=== PATIENT | female | born 1980 | race Caucasian/White ===

== ENCOUNTER 2017-03-12 03:41 | Inpatient (IN) | payer MEDICAID, OTHER ==
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
[2017-03-12 04:29] LABS: BASO # 0.1 K/uL (0.0-0.2); BASO % 0.9 % (0.0-2.0); EOS # 0.3 K/uL (0.0-0.7); EOS % 3.2 % (0.0-4.0); LYMPH # 2.1 K/uL (1.0-4.3); MEAN CELL VOLUME 68.7 fl (81.0-99.0); MEAN CORPUSCULAR HEMOGLOBIN 21.6 pg (27.0-31.0); MEAN CORPUSCULAR HGB CONC 31.4 g/dL (33.0-37.0); MEAN PLATELET VOLUME 9.6 fl (7.2-11.7); MONO # 0.4 K/uL (0.0-0.8); MONO % 4.7 % (0.0-10.0); NEUT # 5.2 K/uL (1.8-7.0); NEUT % 65.2 % (50.0-75.0); NRBC % 0.1 % (0.0-0.0); RED CELL DISTRIBUTION WIDTH 19.7 % (11.5-14.5); WHITE BLOOD COUNT 7.9 K/uL (4.8-10.8)
[2017-03-12 04:34] LABS: RBC URINE 2 /hpf (0-3); URINE BACTERIA RARE (<OCC); URINE BILIRUBIN NEGATIVE (NEGATIVE); URINE BLOOD NEGATIVE (NEGATIVE); URINE COLOR STRAW (YELLOW); URINE GLUCOSE (UA) NEG (Normal); URINE KETONE NEGATIVE (NEGATIVE); URINE LEUKOCYTE ESTERASE NEG Leu/uL (Negative); URINE PROTEIN NEGATIVE (NEGATIVE); URINE UROBILINOGEN 0.2-1.0 mg/dL (0.2-1.0); WBC URINE 1 /hpf (0-5)
[2017-03-12 04:38] LABS: ALB/GLOB RATIO 1.1 (1.0-2.1); ALCOHOL SERUM 236 mg/dl (0-10); ALKALINE PHOSPHATASE 84 U/L (38-126); ALT/SGPT 44 U/L (9-52); AST/SGOT 27 U/L (14-36); BILIRUBIN,TOTAL 0.3 mg/dl (0.2-1.3); BLOOD UREA NITROGEN 7 mg/dl (7-17); CALCIUM 9.2 mg/dL (8.4-10.2); CARBON DIOXIDE 19 mmol/L (22-30); CHLORIDE 111 mmol/L (98-107); GFR AFRICAN-AMERICAN > 60; GLUCOSE,RANDOM 109 mg/dL (65-105); POTASSIUM 4.1 MMOL/L (3.6-5.0); SODIUM 145 mmol/l (132-148); TOTAL PROTEIN 8.3 G/DL (6.3-8.2)
--- NOTE | 2017-03-12 06:32 | ED PDOC ---
- Laboratory Results Result Diagrams: 03/12/17 04:20 03/12/17 04:20 - ECG O2 Sat by Pulse Oximetry: 100 (RA) Medical Decision Making Medical Decision Makin:00 Patient signed over to me by Forest Terry, pending sobriety and crisis evaluation. 7:[address] Tiara Sparks pending sobriety and crisis evaluation. Disposition - Clinical Impression Clinical Impression: Depression, Alcohol intoxication - POA Present On Arrival: None - Disposition Disposition: Transfer of Care Disposition Time: 07:00 Condition: STABLE Patient Signed Over To: Tiara Sparks (pending sobriety and crisis evaluation.)
--- NOTE | 2017-03-12 07:12 | ED PDOC ---
- Laboratory Results Result Diagrams: 03/12/17 04:20 03/12/17 04:20 - ECG ECG: Positive for: Interpreted By Me, Viewed By Me ECG Rhythm: Positive for: Normal QRS, Sinus Rhythm Rate: 84 O2 Sat by Pulse Oximetry: 100 (RA) Pulse Ox Interpretation: Normal Medical Decision Making Medical Decision Making: Receiving sign out: Patient signed out to me by Dr. Perales at 0700 pending clinical sobriety and crisis evaluation. Scribe Attestation: Documented by Nirmala Leon acting as a scribe for Tiara Sparks MD. Provider Attestation: All medical record entries made by the Scribe were at my direction and personally dictated by me. I have reviewed the chart and agree that the record accurately reflects my personal performance of the history, physical exam, medical decision making, and the department course for this patient. I have also personally directed, reviewed, and agree with the discharge instructions and disposition. Disposition - Clinical Impression Clinical Impression: Depression, Alcohol intoxication - POA Present On Arrival: None - Disposition Disposition: Admitted as In-Patient Disposition Time: 12:03 Condition: STABLE Progress Note - Review of Symptoms Events since last encounter: Time: 1007 EKG, Chest x-ray, acetaminophen and salicylate levels ordered. Time: 1123 Chest x-ray IMPRESSION: Minor bibasilar atelectasis Acetaminophen and salicylate levels within normal limits. Patient pending EKG. Time: 1200 Patient medically cleared for admission under Dr. Rahman. Diagnosis: Depression
--- NOTE | 2017-03-12 11:25 | RAD ---
HISTORY: Medical clearance COMPARISON: Comparison made with chest radiographs 08/13/2015 FINDINGS: LUNGS: Minor bibasilar atelectasis PLEURA: No significant pleural effusion identified, no pneumothorax apparent. CARDIOVASCULAR: Normal. OSSEOUS STRUCTURES: No significant abnormalities. VISUALIZED UPPER ABDOMEN: Normal. OTHER FINDINGS: None. IMPRESSION: Minor bibasilar atelectasis
[2017-03-12] MEDS ORDERED: Magnesium Hydroxide Susp 30 ml UD PO PRN (15:15)
[2017-03-12] MEDS ORDERED: Alum-Mag Hydrox-Simethicone Susp (30 mL) PO PRN (15:15)
[2017-03-12] MEDS ORDERED: DiphenhydrAMINE 50 mg/ml Inj IM PRN (15:15)
--- NOTE | 2017-03-12 15:43 | PCM.BM ---
<MonikaKimberlyn toro - Last Filed: 03/12/17 15:41> Treatment Plan Problems - Problems identified on initial assessmt Feelings of Worthlessness Date Initiated: 03/12/17 Time Initiated: 15:43 Assessment reference: NA Status: Active Hopelessness/Helplessness Date Initiated: 03/12/17 Time Initiated: 15:43 Assessment reference: NA Status: Active Treatment assets and liabiliti Patient Assests: cooperative, ADL independent Patient Liabilities: financial problems - Diagnosis (1) Depression Status: Acute - Milieu Protocol Maintain good personal hygiene: daily Encourage regular showers, daily Remind patient to perform daily oral care, daily Assist patient to perform ADL's Conduct patient checks and document Observation sheet: Q15 minutes Maintain personal safety: every shift Educate patient to report safety concerns to staff, every shift Monitor environment for contraband/sharps Medication safety: Monitor for expected outcome, potential side effects: every shift, Assess barriers to learning: every shift, Assess readiness for medication education: every shift Family Contact Family contact: Family has been contacted by patient - Goals for Treatment Patient goals for treatment: To stop being depressed. To "clear my head" Discharge/Continuing Care - Education Needs Education Needs: Patient Medication - Discharge Discharge Criteria: Free of Suicidal thoughts <Becky Heath - Last Filed: 03/15/17 10:58> Treatment assets and liabiliti Patient Assests: adapts well, cooperative, ADL independent, physically healthy, good support system, negotiates basic needs, good past tx response Patient Liabilities: financial problems, relationship conflicts, substance abuse Family Contact Family involvement: Family/SO is involved Family contact: Telephone contact initiated by staff Family contact name: Mckenna (sister) Family contacted how many times per week?: 1 Family contact comment: ([phone])- Preschool Substitute Teacher will contact family to discuss precursors to hospitalizations, collect further collateral information and address family concerns. Preschool Substitute Teacher to provide family psychoeducation regarding benefits of compliance with appropriate level of aftercare to reduce risk of future hospitalizations. - Outside Agency [facility] involvment: Other - Goals for Treatment Patient goals for treatment: Patient currently being taken off ativan. Patient requesting referrals to outpatient mental health and outpatient substance abuse services. Patient currently not agreeable to inpatient rehab but expresses motivation for tx and maintained sobriety to effectively manage symptoms of depression and anxiety. Discharge/Continuing Care - Education Needs Education Needs: Family Medication, Family Diagnosis/Disease Process, Family Coping Skills, Family Community resources, Patient Medication, Patient Diagnosis /Disease Process, Patient Coping Skills, Patient Community resources - Discharge Discharge Criteria: Tolerates medication w/o severe side effects, Free of Suicidal thoughts, Free of agitation, Normal sleep pattern, Ability to care for self, No longer exhibiting s/s of withdrawal, Reduction of target symptoms Discharge to:: Home - Treatment Team Participation Patient/Family/SO Statement: 03/15/17 10:54 Patient attended tx team and was able to tolerate discussions regarding tx goals. Discussed with Family/SO: Yes Was Patient/Family/SO present at Treatment Team Meeting: No
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
[2017-03-12] MEDS: Albuterol HFA 90 mcg/actuation (8 g) IH PRN (21:11)
--- NOTE | 2017-03-13 07:16 | CARD ---
APPROVED REPORT EKG Measurement Heart [id number] <Conclusion> Normal sinus rhythm Normal ECG
[2017-03-13 08:31] LABS: T4 7.68 ug/dl (5.5-11.0)
[2017-03-13 08:44] LABS: THYROID STIMULATING HORMONE 0.76 mIU/ML (0.46-4.68)
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
[2017-03-13] MEDS: Albuterol HFA 90 mcg/actuation (8 g) IH PRN (17:49)
--- NOTE | 2017-03-14 11:37 | PCM.PYCHPN ---
Psychiatric Progress Note - Psychiatric Progress Note Patient seen today, length of contact: discussed with team Patient Chief Complaint: i feel okay Problems Identified/Issues Discussed: pt reports she feels tremulous, nauseated. she feels anxious/depressed. she had good visit with her mother yesterday. Medication Change: Yes Medical Record Reviewed: Yes Mental Status Examination - Cognitive Function Orientation: Person, Place, Situation, Time Memory: Intact Attention: WNL Concentration: WNL Association: WNL Fund of Knowledge: [facility] Decription of patient's judgement and insights: fair - Mood Mood: Depressed, Anxious - Affect Affect: Constricted - Speech Speech: Appropriate - Formal Thought Process Formal Thought Process: No Impairment - Suicidal Ideation Suicidal Ideation: No - Homicidal Ideation Homicidal Ideation: No Goal/Treatment Plan - Goal/Treatment Plan Need for Continued Stay: Remain at risks for inpatient hospitalization, Severe functional impairment Progress Toward Problem(s) and Goals/Treatment Plan: alcohol dependence increase ativan to 1mg tid disposition planning- t/c rehab referral Estimated Date of D/C: 03/17/17
[2017-03-14] MEDS: Albuterol HFA 90 mcg/actuation (8 g) IH PRN (20:52)
[2017-03-15] MEDS: Albuterol HFA 90 mcg/actuation (8 g) IH PRN ×2 (10:14→20:54)
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
[2017-03-15 13:39] LABS: IRON 26 ug/dL (37-170)
--- NOTE | 2017-03-16 11:58 | PCM.PYCHPN ---
Psychiatric Progress Note - Psychiatric Progress Note Patient seen today, length of contact: discussed with team Patient Chief Complaint: i slept Problems Identified/Issues Discussed: pt reports she slept well last night. some mood lability observed. tearful at times. family reports they are watching her children and encourage pt to stay over the weekend. no withdrawal complications. Diagnostic Results: low hgg, low mcv- iron studies show c/w iron deficiency anemia Medication Change: Yes ( start iron) Medical Record Reviewed: Yes Mental Status Examination - Cognitive Function Orientation: Person, Place, Situation, Time Memory: Intact Attention: WNL Concentration: WNL Association: [facility] Fund of Knowledge: [facility] Decription of patient's judgement and insights: fair - Mood Mood: Depressed, Anxious - Affect Affect: Constricted - Speech Speech: Appropriate - Formal Thought Process Formal Thought Process: No Impairment - Suicidal Ideation Suicidal Ideation: No - Homicidal Ideation Homicidal Ideation: No Goal/Treatment Plan - Goal/Treatment Plan Need for Continued Stay: Remain at risks for inpatient hospitalization, Severe functional impairment Progress Toward Problem(s) and Goals/Treatment Plan: alcohol dependence continue ativan to 1mg bid start iron supplementation continue neurontin at hs for sleep/anxiety disposition planning- refer to outpt. Estimated Date of D/C: 03/17/17
[2017-03-16] MEDS: Albuterol HFA 90 mcg/actuation (8 g) IH PRN (21:11)
[2017-03-17 08:48] VITALS: RESP 18
[2017-03-17] MEDS: Albuterol HFA 90 mcg/actuation (8 g) IH PRN (08:52)
--- NOTE | 2017-03-17 11:04 | PCM.PYCHPN ---
Psychiatric Progress Note - Psychiatric Progress Note Patient seen today, length of contact: discussed with team Patient Chief Complaint: can i go monday Problems Identified/Issues Discussed: pt without c/o withdrawal symptoms. mood is improving. anxiety improving. she has good sleep. she is tolerating reduction of ativan. pt's meds have been eprescribed to [facility] pharmacy in [place]. Diagnostic Results: low hgg, low mcv- iron studies show c/w iron deficiency anemia Medication Change: No ( ) Medical Record Reviewed: Yes Mental Status Examination - Cognitive Function Orientation: Person, Place, Situation, Time Memory: Intact Attention: WNL Concentration: WNL Association: [facility] Fund of Knowledge: [facility] Decription of patient's judgement and insights: fair - Mood Mood: Depressed, Anxious - Affect Affect: Constricted - Speech Speech: Appropriate - Formal Thought Process Formal Thought Process: No Impairment - Suicidal Ideation Suicidal Ideation: No - Homicidal Ideation Homicidal Ideation: No Goal/Treatment Plan - Goal/Treatment Plan Need for Continued Stay: Remain at risks for inpatient hospitalization, Severe functional impairment Progress Toward Problem(s) and Goals/Treatment Plan: alcohol dependence lower ativan to 0.5mg bid and dc after pm dose monday start iron supplementation continue neurontin at hs for sleep/anxiety disposition planning- refer to [facility] and will be discharged monday. Estimated Date of D/C: 03/17/17
[2017-03-17 16:37] VITALS: O2SAT 100
[2017-03-18] MEDS: Albuterol HFA 90 mcg/actuation (8 g) IH PRN (03:22)
[2017-03-18 09:30] VITALS: BP 123/76; PULSE 85; TEMP 98.1
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
== END 2017-03-18 18:29 | disposition home or self-care (01) | DRG 745 ==
LOC: H.ER 03:41 → H.EROBSV 04:30 → H.ERHOLD 12:00 → OBSVTOIN 12:00 → H.PSYCH 14:15
PROVIDERS: ADMIT Psychiatry & Neurology Psychiatry; ATTEND Psychiatry & Neurology Psychiatry
PROC: HZ2ZZZZ Detoxification Services for Substance Abuse Treatment (ICD-10-PCS; principal; 2017-03-12)
PROC: GZHZZZZ Group Psychotherapy (ICD-10-PCS; 2017-03-12)
PROC: GZ58ZZZ Individual Psychotherapy, Cognitive-Behavioral (ICD-10-PCS; 2017-03-12)
DX: F10.229 Alcohol dependence with intoxication, unspecified (principal); F11.20 Opioid dependence, uncomplicated; F31.9 Bipolar disorder, unspecified; D50.9 Iron deficiency anemia, unspecified; F41.9 Anxiety disorder, unspecified; F17.210 Nicotine dependence, cigarettes, uncomplicated; G25.81 Restless legs syndrome; Y90.7 Blood alcohol level of 200-239 mg/100 ml; J45.909 Unspecified asthma, uncomplicated; M06.9 Rheumatoid arthritis, unspecified; Z88.0 Allergy status to penicillin; Z59.9 Problem related to housing and economic circumstances, unspecified; Z65.3 Problems related to other legal circumstances; Z91.410 Personal history of adult physical and sexual abuse

== ENCOUNTER 2017-08-15 08:13 | Emergency (ER) | payer OTHER ==
[2017-08-15 08:29] VITALS: BMI 32.4
[2017-08-15 08:31] VITALS: BP 115/59; PULSE 75; RESP 17; TEMP 98.6; O2SAT 98
--- NOTE | 2017-08-15 09:27 | ED PDOC ---
HPI: CCC, URI, Sore Throat Time Seen by Provider: 08/15/17 08:52 Chief Complaint (Nursing): Flu-like Symptoms Chief Complaint (Provider): URI symptoms History Per: Patient History/Exam Limitations: no limitations Have you had recent travel within the past 21 days to any of the following countries: [place], [place], [place] or [place]?: No Onset/Duration Of Symptoms: Days Current Symptoms Are (Timing): Still Present Location Of Pain: Throat, Diffuse Myalgias Associated Symptoms: Fever Additional Complaint(s): 37yo female, with history of asthma, presents to ED with complaints of fever, sore throat, bodyaches and cough for the past 2 days. Patient denies any chest pain, or shortness of breath. No other medical complaints. Past Medical History Reviewed: Historical Data, Nursing Documentation, Vital Signs Vital Signs: Last Vital Signs Temp 98.6 F 08/15/17 08:29 Pulse 75 08/15/17 08:29 Resp 17 08/15/17 08:29 BP 115/59 L 08/15/17 08:29 Pulse Ox 98 08/15/17 09:27 - Medical History PMH: Anxiety, Asthma, Back Problems, Bipolar Disorder, Depression, Migraine, Rheumatoid Arthritis Denies: Diabetes, Hepatitis, HIV, HTN, Personality Disorder, Chronic Kidney Disease, Schizophrenia, Seizures, Sexually Transmitted Disease - Surgical History Surgical History: (x 2) - Family History Family History: States: Unknown Family Hx - Immunization History Hx Tetanus Toxoid Vaccination: No Hx Influenza Vaccination: Yes Hx Pneumococcal Vaccination: Yes - Home Medications Home Medications: Ambulatory Orders Medication Instructions Recorded traMADol/Acetaminophen [Ultracet 1 tab PO Q6 PRN 03/12/17 37.5/325 mg] ARIPiprazole [Abilify] 10 mg PO DAILY #30 tab 03/17/17 Albuterol HFA [Ventolin HFA 90 2 puff IH Q6 PRN inhaler 03/17/17 mcg/actuation (8 g)] Ferrous Sulfate [Feosol] 325 mg PO DAILY #30 tab 03/17/17 Folic Acid 1 mg PO DAILY #30 tab 03/17/17 Gabapentin [Neurontin] 400 mg PO HS #30 cap 03/17/17 Gabapentin [Neurontin] 600 mg PO TID #90 tab 03/17/17 Nicotine 21 mg/24 hr [Nicoderm Cq] 1 patch TD DAILY #30 patch 03/17/17 Thiamine [Vitamin B1 Tab] 100 mg PO DAILY #30 tab 03/17/17 traZODone [Desyrel] 100 mg PO HS PRN #30 tab 03/17/17 traZODone [Desyrel] 150 mg PO HS PRN #90 tab 03/17/17 Oseltamivir [Tamiflu] 75 mg PO BID #10 cap 08/15/17 - Allergies Allergies/Adverse Reactions: Allergies Allergy/AdvReac Type Severity Reaction Status Date / Time ketorolac tromethamine Allergy Severe ANAPHYLAXIS Verified 03/12/17 03:50 [From Toradol] Penicillins Allergy Severe ANAPHYLAXIS Verified 03/12/17 03:50 pineapple Allergy WHEEZING Verified 03/17/17 22:22 Review of Systems ROS Statement: Except As Marked, All Systems Reviewed And Found Negative Constitutional: Positive for: Fever, Malaise ENT: Positive for: Throat Pain Cardiovascular: Negative for: Chest Pain Respiratory: Positive for: Cough. Negative for: Shortness of Breath Physical Exam - Reviewed Nursing Documentation Reviewed: Yes Vital Signs Reviewed: Yes - Physical Exam Appears: Positive for: Non-toxic, No Acute Distress Head Exam: Positive for: ATRAUMATIC, NORMAL INSPECTION, NORMOCEPHALIC Skin: Positive for: Normal Color Eye Exam: Positive for: Normal appearance ENT: Positive for: Normal ENT Inspection. Negative for: Pharyngeal Erythema, Tonsillar Exudate, Tonsillar Swelling Neck: Positive for: Normal, Painless ROM, Supple Cardiovascular/Chest: Positive for: Regular Rate, Rhythm Respiratory: Positive for: Normal Breath Sounds. Negative for: Respiratory Distress Extremity: Positive for: Normal ROM. Negative for: Deformity, Swelling Neurologic/Psych: Positive for: Alert, Oriented. Negative for: Motor/Sensory Deficits - ECG O2 Sat by Pulse Oximetry: 98 (RA) Pulse Ox Interpretation: Normal Medical Decision Making Medical Decision Making: Impression: URI symptoms Plan: -- Rapid flu Scribe Attestation: Documented by Nirmala Leon, acting as a scribe for Austen Brennan MD. Provider Scribe Attestation: All medical record entries made by the Scribe were at my direction and personally dictated by me. I have reviewed the chart and agree that the record accurately reflects my personal performance of the history, physical exam, medical decision making, and the department course for this patient. I have also personally directed, reviewed, and agree with the discharge instructions and disposition. Disposition - Clinical Impression Clinical Impression: Influenza-like symptoms, Influenza - Patient ED Disposition Is Patient to be Admitted: No Counseled Patient/Family Regarding: Studies Performed, Diagnosis, Need For Followup, Rx Given - Disposition Referrals: [facility] [Outside] Disposition: Routine/Home Disposition Time: 09:52 Condition: FAIR Prescriptions: Oseltamivir [Tamiflu] 75 mg PO BID #10 cap Instructions: Influenza (ED) Forms: [facility] (Tajik)
== END 2017-08-15 10:16 | disposition home or self-care (01) ==
LOC: H.ER 08:13
DX: J45.909 Unspecified asthma, uncomplicated (principal); F31.9 Bipolar disorder, unspecified; F41.9 Anxiety disorder, unspecified; M06.9 Rheumatoid arthritis, unspecified; Z88.0 Allergy status to penicillin

== ENCOUNTER 2018-10-26 05:42 | Observation (INO) | payer MEDICAID ==
[2018-10-26 05:42] VITALS: BMI 32.4
[2018-10-26] MEDS ORDERED: Lidocaine 1% w Epi 1:100,000 Inj ONE (06:07)
[2018-10-26] MEDS ORDERED: Tdap Vaccine 0.5 ml Vial (10-64 yrs) IM ONE ×2 (06:35→06:47)
[2018-10-26] MEDS ORDERED: Lidocaine/Epi 1% 1:100000 20 ML IJ ONE (06:36)
--- NOTE | 2018-10-26 06:40 | ED PDOC ---
HPI: Head Injury Time Seen by Provider: 10/26/18 05:44 Chief Complaint (Nursing): Trauma Chief Complaint (Provider): Trauma History Per: Patient History/Exam Limitations: no limitations Injury Occurred (Timing): Just Before Arrival Patient States: Fell Striking Head Loss Of Consciousness: Minute(s) (approximately 1) Additional Complaint(s): 38 year old female with a history of bipolar disorder presents to the ED via EMS after a fall, causing a head injury just prior to arrival. Patient reports that she fell from the toilet when she was seated and voiding at the time. She approximates losing consciousness for one minute. Patient suffered a laceration to her left forehead and is experiencing swelling over her left eye, as well as a mild headache. Denies chest pain, shortness of breath, nausea and vomiting. PMD: none provided Past Medical History Reviewed: Historical Data, Nursing Documentation, Vital Signs Vital Signs: Last Vital Signs Temp 98.7 F 10/26/18 05:53 Pulse 101 H 10/26/18 05:53 Resp 16 10/26/18 05:53 BP 129/71 10/26/18 05:53 Pulse Ox 100 10/26/18 05:53 - Medical History PMH: Anxiety, Asthma, Back Problems, Bipolar Disorder, Depression, Migraine, Rheumatoid Arthritis Denies: Diabetes, Hepatitis, HIV, HTN, Personality Disorder, Chronic Kidney Disease, Schizophrenia, Seizures, Sexually Transmitted Disease - Surgical History Surgical History: (x 2) - Family History Family History: States: Unknown Family Hx - Social History Current smoker - smoking cessation education provided: No Alcohol: None Drugs: Denies - Immunization History Hx Tetanus Toxoid Vaccination: No Hx Influenza Vaccination: Yes Hx Pneumococcal Vaccination: Yes - Home Medications Home Medications: Ambulatory Orders Medication Instructions Recorded Acetaminophen/Butalbital/Caf 1 tab PO Q6 PRN 10/26/18 [Fioricet] Aripiprazole Extended Release 400 mg IM Q28D 10/26/18 [Abilify Maintena] Gabapentin [Neurontin] 400 mg PO TID 10/26/18 Gabapentin [Neurontin] 600 mg PO HS 10/26/18 Zolpidem [Ambien] 10 mg PO HS 10/26/18 traMADol [Ultram] 50 mg PO Q6 PRN 10/26/18 - Allergies Allergies/Adverse Reactions: Allergies Allergy/AdvReac Type Severity Reaction Status Date / Time ketorolac tromethamine Allergy Severe ANAPHYLAXIS Verified 10/26/18 05:53 [From Toradol] Penicillins Allergy Severe ANAPHYLAXIS Verified 10/26/18 05:53 pineapple Allergy WHEEZING Verified 10/26/18 05:53 Review of Systems ROS Statement: Except As Marked, All Systems Reviewed And Found Negative Eyes: Positive for: Other (laceration to left forehead; swelling over left eye) Cardiovascular: Negative for: Chest Pain Respiratory: Negative for: Cough, Shortness of Breath Gastrointestinal: Negative for: Nausea, Vomiting Physical Exam - Reviewed Nursing Documentation Reviewed: Yes Vital Signs Reviewed: Yes - Physical Exam Appears: Positive for: Non-toxic, No Acute Distress Head Exam: Positive for: ATRAUMATIC, NORMAL INSPECTION, NORMOCEPHALIC Skin: Positive for: Normal Color, Warm, Dry Eye Exam: Positive for: Normal appearance, EOMI, PERRL, Periorbital swelling (left; ecchymosis and edema), Other (3 cm, gaping semi-circular laceration above left eyebrow) Neck: Positive for: Normal, Painless ROM, Supple Cardiovascular/Chest: Positive for: Regular Rate, Rhythm. Negative for: Murmur Respiratory: Positive for: Normal Breath Sounds. Negative for: Respiratory Di stress Gastrointestinal/Abdominal: Positive for: Normal Exam, Soft. Negative for: Tenderness Back: Positive for: Normal Inspection. Negative for: L CVA Tenderness, R CVA Tenderness Extremity: Positive for: Normal ROM (x 4). Negative for: Deformity Neurological/Psych: Positive for: Awake, Alert, Normal Tone, Symmetric/Intact Strength, Oriented (x 3), Gait (steady), coping machine operator II-XII (intact). Negative for: Cerebellar Tests, Motor/Sensory Deficits, Facial Droop - Laboratory Results Result Diagrams: 10/26/18 06:50 10/26/18 06:50 - ECG O2 Sat by Pulse Oximetry: 100 (RA) Pulse Ox Interpretation: Normal Medical Decision Making Medical Decision Makin:32 Impression: forehead laceration, head injury and headache Initial Plan: --CT head --CT maxillofacial --CMP --CBC --Urine preg --Urine dip --Tetanus .5 ml IJ --Lidocaine 1% 4 ml IJ --Tylenol 975 mg PO --Accucheck 07:00 Patient signed out to Dr. Andrews pending full ER workup, re-evaluation and final disposition. -- Scribe Attestation: Documented by Dana Berger, acting as a scribe Thea Langley MD Provider Scribe Attestation: All medical record entries made by the Scribe were at my direction and personally dictated by me. I have reviewed the chart and agree that the record accurately reflects my personal performance of the history, physical exam, medical decision making, and the department course for this patient. I have also personally directed, reviewed, and agree with the discharge instructions and disposition Procedures - Time-Out Type of Procedure: Laceration Repair Site of Procedure: Above left eyebrow Correct Patient (with visual ID + MR# on ID Band): Yes Correct Procedure: Yes Correct Site Marked: Yes Physician Name: Dr. Langley - Laceration/Wound Repair Left Upper Face Wound Length (cm): 3 Wound Explored: clean Anesthesia: 1% Lidocaine Wound Repaired With: Sutures Suture Size/Type: 5:0, proline Number of Sutures: 9 Wound Complexity: Simple Sterile Dressing Applied?: Yes Progress: 3 cm semi-circular laceration above left eyebrow repaired with 9 5:0 proline stitches. Bacitracin and sterile dressing applied. Patient tolerated procedure well. Disposition - Clinical Impression Clinical Impression: Syncope, Head injury, Laceration of forehead - Patient ED Disposition Is Patient to be Admitted: Transfer of Care - Disposition Disposition: Transfer of Care Disposition Time: 07:00 Condition: FAIR Patient Signed Over To: Mina Andrews
[2018-10-26 07:07] LABS: BASO % 0.4 % (0.0-2.0); EOS # 0.1 K/uL (0.0-0.7); EOS % 0.8 % (0.0-4.0); HEMOGLOBIN 8.8 g/dL (12.0-16.0); LYMPH % 9.6 % (20.0-40.0); MEAN CELL VOLUME 61.2 fl (81.0-99.0); MEAN CORPUSCULAR HEMOGLOBIN 18.1 pg (27.0-31.0); MEAN CORPUSCULAR HGB CONC 29.6 g/dL (33.0-37.0); MEAN PLATELET VOLUME 9.2 fl (7.2-11.7); MONO # 0.4 K/uL (0.0-0.8); NEUT # 9.1 K/uL (1.8-7.0); NEUT % 85.2 % (50.0-75.0); PLATELET COUNT 190 K/uL (130-400); RBC 4.85 Mil/uL (3.80-5.20); RED CELL DISTRIBUTION WIDTH 19.2 % (11.5-14.5); WHITE BLOOD COUNT 10.7 K/uL (4.8-10.8)
[2018-10-26 07:17] LABS: ALB/GLOB RATIO 1.2 (1.0-2.1); ALBUMIN 4.1 g/dL (3.5-5.0); ALT/SGPT 16 U/L (9-52); AST/SGOT 24 U/L (14-36); BLOOD UREA NITROGEN 9 mg/dl (7-17); CALCIUM 9.2 mg/dL (8.4-10.2); GFR NON-AFRICAN AMERICAN > 60
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
[2018-10-26 07:56] LABS: ANISOCYTOSIS SLIGHT; EOSINOPHIL 1 % (0-7); HYPOCHROMIC MODERATE; LYMPHOCYTE 12 % (20-50); MICROCYTOSIS MODERATE; MONOCYTE 4 % (0-10); NEUTROPHIL 83 % (42-75); OVALOCYTES SLIGHT; PLATELET ESTIMATE NORMAL (NORMAL); POIKILOCYTOSIS SLIGHT; TEARDROP CELLS SLIGHT; TOTAL CELLS COUNTED 100
--- NOTE | 2018-10-26 08:18 | CT ---
Date of service: 10/26/2018 PROCEDURE: CT HEAD WITHOUT CONTRAST. HISTORY: head injury COMPARISON: None available. TECHNIQUE: Axial computed tomography images were obtained through the head/brain without intravenous contrast. Radiation dose: Total exam DLP = 1570.26 mGy-cm. This CT exam was performed using one or more of the following dose reduction techniques: Automated exposure control, adjustment of the mA and/or kV according to patient size, and/or use of iterative reconstruction technique. FINDINGS: HEMORRHAGE: No intracranial hemorrhage. BRAIN: Normal [place]-white matter differentiation and density are appreciated throughout the cerebrum and cerebellum with the brainstem appearing unremarkable as well. There is no mass effect. There is no suspicious extra-axial fluid collection and the midline brain anatomy appears diffusely unremarkable. VENTRICLES: Unremarkable. No hydrocephalus. CALVARIUM: No destructive bony lesion or displaced fracture identified including through the skullbase. Small exostosis is seen related to the right frontal bone at the vertex. PARANASAL SINUSES: Unremarkable as visualized. No significant inflammatory changes. MASTOID AIR CELLS: Unremarkable as visualized. No inflammatory changes. OTHER FINDINGS: Incidental left orbital cellulitis, posttraumatic. Please see separate left facial CT without contrast for added details. IMPRESSION: No acute intracranial findings. Small exostosis related to right frontal vertex. Posttraumatic left orbital findings. Please see separate facial CT results also performed 10/26/2018.
--- NOTE | 2018-10-26 08:26 | CT ---
Date of service: 10/26/2018 PROCEDURE: CT MAXILLOFACIAL BONES WITHOUT CONTRAST HISTORY: facial trauma COMPARISON: None available. TECHNIQUE: Contiguous axial CT images of the maxillofacial bones were obtained. Coronal and sagittal reformats were generated. Radiation dose: Total exam DLP = 0.0 mGy-cm. This CT exam was performed using one or more of the following dose reduction techniques: Automated exposure control, adjustment of the mA and/or kV according to patient size, and/or use of iterative reconstruction technique. FINDINGS: NASAL BONES: Unremarkable. ORBITS: A prominent left preseptal edema with periorbital hematoma appearing minimal. Emphysematous changes are identified within edema extending into the left frontal scalp minimally. Reactive changes are identified within the extraconal and intraconal fat in the preseptal space mildly without obvious fluid collection. Further clinical correlation is recommended. Right orbit appears unremarkable. PARANASAL SINUSES/ MASTOIDS: Acute right maxillary sinusitis multifocal left ethmoid sinus disease also present. Trace mucoid material or polyp/cyst left frontal sinus nondependent portion. Leftward bony nasal septal deviation. No fracture identified or destructive bony lesion. MAXILLA: Unremarkable. MANDIBLE/ TEMPOROMANDIBULAR JOINTS: Unremarkable. SKULL BASE: Unremarkable. TEMPORAL BONES: Middle ears and mastoid grossly unremarkable. OTHER FINDINGS: None. IMPRESSION: 1. Presumed posttraumatic preseptal and postseptal left orbital cellulitis with the vast majority of reactive changes present in the periorbital and preseptal fat. Trace emphysematous changes seen related to the superior left periorbital and left frontal subcutaneous fat. Mild intraconal and extraconal fatty reaction is also appreciated without fluid collection and ophthalmological consultation may be required. Infectious or inflammatory etiologies not excluded completely. Clinically correlate. 2. Acute right maxillary sinusitis with nonspecific left ethmoid sinusitis. 3. No acute fracture identified throughout the facial bones.
[2018-10-26 10:47] LABS: BARBITURATES, UR NEGATIVE (NEGATIVE)
[2018-10-26 10:48] LABS: BENZODIAZEPINES, UR NEGATIVE (NEGATIVE); OPIATES, UR NEGATIVE (NEGATIVE); PHENCYCLIDINE, UR NEGATIVE (NEGATIVE)
--- NOTE | 2018-10-26 12:05 | MRI ---
Date of service: 10/26/2018 PROCEDURE: MRI BRAIN WITHOUT CONTRAST HISTORY: Syncope, head injury. With the patient's some all adjacent may COMPARISON: Comparison made with CT scan brain 10/26/2018 TECHNIQUE: Multiplanar, multisequence MR images of the brain were obtained without intravenous contrast enhancement. FINDINGS: HEMORRHAGE: No acute parenchymal, subarachnoid or extra-axial hemorrhage. No evidence hemosiderin deposition identified on gradient echo weighted sequence. DWI: No evidence of an acute or early subacute infarction seen on diffusion imaging.. BRAIN PARENCHYMA: No mass effect or edema. No atrophy or chronic microvascular ischemic changes. VENTRICLES: No obstructive hydrocephalus. CRANIUM: Unremarkable. ORBITS: Left periorbital soft tissue swelling. Question small amount of fluid just beneath the left eyelid. Additionally, there also appears to be infiltration changes in the retrobulbar fat both intraconal and extraconal.. While these changes could be reactive secondary to trauma, the possibility of a inflammatory or infectious intraorbital cellulitis cannot be excluded. Ophthalmologic consultation is suggested. PARANASAL SINUSES/MASTOIDS: Moderate mucosal thickening with possible small fluid level right maxillary antrum. There is also mild mucosal thickening in several left-sided ethmoid air cells extending superiorly into the frontal sinus. VASCULAR SYSTEM: Visualized major vascular flow voids at skull base are patent. OTHER FINDINGS: Redemonstrated is soft tissue swelling seen in the left pre maxillary periorbital supraorbital and left frontotemporal region. IMPRESSION: No acute intracranial hemorrhage. Left-sided facial soft tissue including periorbital soft tissue swelling as above. Question small amount of fluid just beneath the left eyelid. Additionally, there also appears to be infiltration changes in the retrobulbar fat both intraconal and extraconal.. While these changes could be reactive secondary to trauma, the possibility of a orbital inflammatory or infectious cellulitis cannot be excluded. Ophthalmologic consultation is suggested. Mucoperiosteal inflammatory changes within the right maxillary multiple left-sided ethmoid air cells as well as frontal sinus. The
[2018-10-26] MEDS ORDERED: levETIRAcetam 1,000 MG in Sodium Chloride 0.9% 200 ML IVPB ONE (12:27)
[2018-10-26] MEDS ORDERED: Valproate 1,000 MG in Sodium Chloride 0.9% 100 ML IVPB ONE (12:31)
[2018-10-26] MEDS ORDERED: levETIRAcetam 1,000 MG in Sodium Chloride 0.9% 100 ML IVPB ONE (12:45)
--- NOTE | 2018-10-26 15:03 | CP.PCM.CON ---
History of Present Illness - History of Present Illness History of Present Illness: Neurology consult dictated. Patient with new onset epilepsy. Continue on depakote 500 mg bid. [facility] outpatient. [facility] #[id number] Dr. Gonzalez Neurology Past Patient History - Tetanus Immunizations Tetanus Immunization: Unknown - Past Medical History & Family History Past Medical History?: Yes - Past Social History Alcohol: None Drugs: Denies - CARDIAC Hx Hypertension: No - PULMONARY Hx Asthma: Yes - NEUROLOGICAL Hx Migraine: Yes Hx Seizures: No - HEENT Hx HEENT Problems: No - RENAL Hx Chronic Kidney Disease: No - ENDOCRINE/METABOLIC Hx Endocrine Disorders: No - HEMATOLOGICAL/ONCOLOGICAL Hx Human Immunodeficiency Virus (HIV): No - INTEGUMENTARY Hx Dermatological Problems: No - MUSCULOSKELETAL/RHEUMATOLOGICAL Hx Rheumatoid Arthritis: Yes - GASTROINTESTINAL Hx Gastrointestinal Disorders: Yes Hx Colitis: Yes - GENITOURINARY/GYNECOLOGICAL Hx Sexually Transmitted Disorders: No - PSYCHIATRIC Hx Anxiety: Yes Hx Bipolar Disorder: Yes Hx Depression: Yes Hx Schizophrenia: No - SURGICAL HISTORY Hx Surgeries: Yes Hx Section: Yes (x3) Hx Tubal Ligation: Yes (x2) Other/Comment: ectopic . - ANESTHESIA Hx Anesthesia: Yes Hx Anesthesia Reactions: No Hx Malignant Hyperthermia: No Meds Allergies/Adverse Reactions: Allergies Allergy/AdvReac Type Severity Reaction Status Date / Time ketorolac tromethamine Allergy Severe ANAPHYLAXIS Verified 10/26/18 05:53 [From Toradol] Penicillins Allergy Severe ANAPHYLAXIS Verified 10/26/18 05:53 pineapple Allergy WHEEZING Verified 10/26/18 05:53 Results - Vital Signs Recent Vital Signs: Last Vital Signs Temp 99.3 F 10/26/18 13:09 Pulse 102 H 10/26/18 13:09 Resp 22 10/26/18 13:09 BP 115/64 10/26/18 13:09 Pulse Ox 100 10/26/18 13:09 - Labs Result Diagrams: 10/26/18 06:50 10/26/18 06:50 Labs: Laboratory Results - last 24 hr 10/26/18 10/26/18 10/26/18 06:50 06:50 06:55 WBC 10.7 RBC 4.85 Hgb 8.8 L Hct 29.7 L MCV 61.2 L D MCH 18.1 L MCHC 29.6 L RDW 19.2 H Plt Count 190 MPV 9.2 Neut % (Auto) 85.2 H Lymph % (Auto) 9.6 L [place] % (Auto) 4.0 Eos % (Auto) 0.8 Baso % (Auto) 0.4 Neut # (Auto) 9.1 H Lymph # (Auto) 1.0 [place] # (Auto) 0.4 Eos # (Auto) 0.1 Baso # (Auto) 0.0 Neutrophils % (Manual) 83 H Lymphocytes % (Manual) 12 L Monocytes % (Manual) 4 Eosinophils % (Manual) 1 Platelet Estimate Normal Hypochromasia (manual) Moderate Poikilocytosis (manual Slight Anisocytosis (manual) Slight Microcytosis (manual) Moderate Tear Drop Cells Slight Ovalocytes Slight Sodium 137 Potassium 4.0 Chloride 105 Carbon Dioxide 22 Anion Gap 14 BUN 9 Creatinine 0.6 L Est GFR ( Amer) > 60 Est GFR (Non-Af Amer) > 60 POC Glucose (mg/dL) 157 H Random Glucose 132 H Calcium 9.2 Total Bilirubin 0.2 AST 24 ALT 16 Alkaline Phosphatase 78 Troponin I Total Protein 7.6 Albumin 4.1 Globulin 3.5 Albumin/Globulin Ratio 1.2 Urine Opiates Screen Urine Methadone Screen Ur Barbiturates Screen Ur Phencyclidine Scrn Ur Amphetamines Screen U Benzodiazepines Scrn U Oth Cocaine Metabols U Cannabinoids Screen Alcohol, Quantitative 10/26/18 10/26/18 10/26/18 07:52 10:15 10:42 WBC RBC Hgb Hct MCV MCH MCHC RDW Plt Count MPV Neut % (Auto) Lymph % (Auto) [place] % (Auto) Eos % (Auto) Baso % (Auto) Neut # (Auto) Lymph # (Auto) [place] # (Auto) Eos # (Auto) Baso # (Auto) Neutrophils % (Manual) Lymphocytes % (Manual) Monocytes % (Manual) Eosinophils % (Manual) Platelet Estimate Hypochromasia (manual) Poikilocytosis (manual Anisocytosis (manual) Microcytosis (manual) Tear Drop Cells Ovalocytes Sodium Potassium Chloride Carbon Dioxide Anion Gap BUN Creatinine Est GFR ( Amer) Est GFR (Non-Af Amer) POC Glucose (mg/dL) 147 H Random Glucose Calcium Total Bilirubin AST ALT Alkaline Phosphatase Troponin I < 0.0120 Total Protein Albumin Globulin Albumin/Globulin Ratio Urine Opiates Screen Negative Urine Methadone Screen Negative Ur Barbiturates Screen Negative Ur Phencyclidine Scrn Negative Ur Amphetamines Screen Negative U Benzodiazepines Scrn Negative U Oth Cocaine Metabols Negative U Cannabinoids Screen Negative Alcohol, Quantitative < 10
--- NOTE | 2018-10-26 17:28 | CON ---
DATE: 10/26/2018 NEUROLOGY CONSULTATION CONSULT REQUESTED BY: Dr. Rubio in [facility]. HISTORY OF PRESENT ILLNESS: Ms. Tang is a 38-year-old woman with history of bipolar disorder who was sleeping in her bed last night with her boyfriend. When she got up to go to the bathroom, he heard a thud shortly thereafter and found her lying face down, shaking with focal seizures in their kitchen. He states this has never happened before. There is no history of drug use. No history of alcohol use. No history of recent head trauma. No history of [employer] neoplasm or other focal causes for epilepsy. The patient arrived at [facility], was given Ativan in [facility] and had another seizure as well. She experienced a laceration to her left forehead and has extreme swelling and ecchymosis around her left eye, but is otherwise able to answer questions and is alert, awake, and oriented. REVIEW OF SYSTEMS: Negative for headache, for visual difficulty, for diffuse weakness. She denies prior episodes of family history of epilepsy. She denies beginning drugs or stopping any medications recently. PAST MEDICAL HISTORY: Anxiety, asthma, bipolar, depression, migraine, and . PAST SURGICAL HISTORY: History of . FAMILY HISTORY: Unknown. SOCIAL HISTORY: Four cigarettes a day. ALLERGIES: PENICILLIN AND KETOROLAC. PHYSICAL EXAMINATION: VITAL SIGNS: Stable. LABORATORY DATA: Labs were within normal limits including white count, hemoglobin, and hematocrit. They did show a left shift of 82% neutrophils. Chemistry is normal except of glucose which was 147. Toxicology was negative. Brain MRI was done, it was read as normal. Had CAT scan done which was read as normal. MEDICATIONS: She is not on any medications that we know of. IMPRESSION: This is a 38-year-old woman who most likely has new onset epilepsy; etiology and syndrome as of yet undetermined. PLAN: 1. Load with Depakote 1000 mg now, 500 twice a day. 2. May obtain video EEG on an outpatient basis. 3. We will follow this patient in telemetry with seizure precautions. Stefani Gonzalez MD [facility] # [id number]
--- NOTE | 2018-10-26 18:16 | CP.PCM.CON ---
History of Present Illness - History of Present Illness History of Present Illness: I was asked to see patient by Dr Lopez and Kaylee. Patient seen 10/26/18 1800 Patient is a 38 year old female who had syncope. She was in the street when she passed out. The patient was brought to [facility]. She was seen by brody and was diagnosed with new onset seizure. Review of Systems - Constitutional Constitutional: absent: As Per HPI, Anorexia, Chills, Daytime Sleepiness, Excessive Sweating, Fatigue, Fever, Frequent Falls, Headache, Increased Appetite, Lethargy, Malaise, Night Sweats, Snoring, Sleep Apnea, Weight Gain, Weight Loss, Weakness, Other - EENT Eyes: absent: As Per HPI, Blind Spots, Blurred Vision, Change in Vision, Decreased Night Vision, Diplopia, Discharge, Dry Eye, Exophthalmos, Floaters, Irritation, Itchy Eyes, Loss of Peripheral Vision, Pain, Photophobia, Requires Corrective Lenses, Sees Flashes, Spots in Vision, Tunnel Vision, Other Visual Disturbances, Loss of Vision, Other Ears: absent: As Per HPI, Decreased Hearing, Ear Discharge, Ear Pain, Tinnitus, Abnormal Hearing, Disequilibrium, Dizziness, Other Nose/Mouth/Throat: absent: As Per HPI, Epistaxis, Nasal Congestion, Nasal Discharge, Nasal Obstruction, Nasal Trauma, Nose Pain, Post Nasal Drip, Sinus Pain, Sinus Pressure, Bleeding Gums, Change in Voice, Dental Pain, Dry Mouth, Dysphagia, Halitosis, Hoarsness, Lip Swelling, Mouth Lesions, Mouth Pain, Odynophagia, Sore Throat, Throat Swelling, Tongue Swelling, Facial Pain, Neck Pain, Neck Mass, Other - Cardiovascular Cardiovascular: absent: As Per HPI, Acrocyanosis, Chest Pain, Chest Pain at R est, Chest Pain with Activity, Claudication, Diaphoresis, Dyspnea, Dyspnea on Exertion, Edema, Irregular Heart Rhythm, Pain Radiating to Arm/Neck/Jaw, Leg Edema, Leg Ulcers, Lightheadedness, Orthopnea, Palpitations, Paroxysmal Nocturnal Dyspnea, Pedal Edema, Radiating Pain, Rapid Heart Rate, Slow Heart Rate, Syncope, Other - Respiratory Respiratory: absent: As Per HPI, Cough, Dyspnea, Hemoptysis, Dyspnea on Exertion, Wheezing, Snoring, Stridor, Pain on Inspiration, Chest Congestion, Excessive Mucous Production, Change in Mucous Color, Pain with Coughing, Other - Gastrointestinal Gastrointestinal: absent: As Per HPI, Abdominal Pain, Belching, Bloating, Change in Bowel Habits, Change in Stool Character, Coffee Ground Emesis, Constipation, Cramping, Diarrhea, Dyspepsia, Dysphagia, Early Satiety, Excessive Flatus, Fecal Incontinence, Heartburn, Hematemesis, Hematochezia, Loose Stools, Melena, Nausea, Odynophagia, Temesmus, Vomiting, Other - Genitourinary Genitourinary: absent: As Per HPI, Change in Urinary Stream, Difficulty Urinating, Dysuria, Flank Pain, Hematuria, Pyuria, Nocturia, Urinary Incontinence, Urinary Frequency, Urinary Hesitance, Urinary Urgency, Voiding Freq/Small Amts, Freq UTI, Hx Renal/Bladder Calculi, Hx /Renal Surgery, Bladder Distension, Other - Musculoskeletal Musculoskeletal: absent: As Per HPI, Abnormal Gait, Arthralgias, Atrophy, Back Pain, Deformity, Joint Swelling, Limited Range of Motion, Loss of Height, Muscle Cramps, Muscle Weakness, Myalgias, Neck Pain, Numbness, Radiating Pain into Limb, Stiffness, Tingling, Other - Integumentary Integumentary: absent: As Per HPI, Acne, Alopecia, Bleeding Lesions, Change in Hair, Change in Nails, Change in Pigmentation, Changing Lesions, Dry Skin, Erythema, Furuncle, Hirsutism, Lesions, New Lesions, Non-Healing Lesions, Photosensitivity, Pruritus, Rash, Skin Pain, Skin Ulcer, Sores, Striae, Swelling, Unusual Bruising, Wounds, Jaundice, Other - Neurological Neurological: Syncope - Psychiatric Psychiatric: absent: As Per HPI, Abnormal Sleep Pattern, Anhedonia, Anxiety, Auditory Hallucinations, Behavioral Changes, Change in Appetite, Change in Libido, Confusion, Depression, Difficulty Concentrating, Hallucinations, Homicidal Ideation, Hopelessness, Irritability, Memory Loss, Mood Swings, Panic Attacks, Paranoia, Suicidal Ideation, Visual Hallucinations, Tactile Hallucinations, Other - Endocrine Endocrine: absent: As Per HPI, Change in Body Appearance, Change in Libido, Cold Intolorance, Deepening of Voice, Excessive Sweating, Fatigue, Flushing, Heat Intolorance, Increase in Ring/Shoe/Hat Size, Palpitations, Polydipsia, Polyphagia, Polyuria, Other - Hematologic/Lymphatic Hematologic: absent: As Per HPI, Easy Bleeding, Easy Bruising, Lymphadenopathy, Other Past Patient History - Tetanus Immunizations Tetanus Immunization: Unknown - Past Medical History & Family History Past Medical History?: Yes - Past Social History Alcohol: None Drugs: Denies - CARDIAC Hx Hypertension: No - PULMONARY Hx Asthma: Yes - NEUROLOGICAL Hx Migraine: Yes Hx Seizures: No - HEENT Hx HEENT Problems: No - RENAL Hx Chronic Kidney Disease: No - ENDOCRINE/METABOLIC Hx Endocrine Disorders: No - HEMATOLOGICAL/ONCOLOGICAL Hx Human Immunodeficiency Virus (HIV): No - INTEGUMENTARY Hx Dermatological Problems: No - MUSCULOSKELETAL/RHEUMATOLOGICAL Hx Rheumatoid Arthritis: Yes - GASTROINTESTINAL Hx Gastrointestinal Disorders: Yes Hx Colitis: Yes - GENITOURINARY/GYNECOLOGICAL Hx Sexually Transmitted Disorders: No - PSYCHIATRIC Hx Anxiety: Yes Hx Bipolar Disorder: Yes Hx Depression: Yes Hx Schizophrenia: No - SURGICAL HISTORY Hx Surgeries: Yes Hx Section: Yes (x3) Hx Tubal Ligation: Yes (x2) Other/Comment: ectopic . - ANESTHESIA Hx Anesthesia: Yes Hx Anesthesia Reactions: No Hx Malignant Hyperthermia: No Meds Allergies/Adverse Reactions: Allergies Allergy/AdvReac Type Severity Reaction Status Date / Time ketorolac tromethamine Allergy Severe ANAPHYLAXIS Verified 10/26/18 05:53 [From Toradol] Penicillins Allergy Severe ANAPHYLAXIS Verified 10/26/18 05:53 pineapple Allergy WHEEZING Verified 10/26/18 05:53 Physical Exam - Constitutional Appears: Non-toxic - Head Exam Head Exam: NORMAL INSPECTION - Eye Exam Eye Exam: Normal appearance - ENT Exam ENT Exam: Mucous Membranes Moist - Neck Exam Neck exam: Positive for: Full Rom - Respiratory Exam Respiratory Exam: NORMAL BREATHING PATTERN - Cardiovascular Exam Cardiovascular Exam: REGULAR RHYTHM - GI/Abdominal Exam GI & Abdominal Exam: Normal Bowel Sounds - Rectal Exam Rectal Exam: Deferred - Extremities Exam Extremities exam: Negative for: pedal edema - Back Exam Back exam: NORMAL INSPECTION - Neurological Exam Neurological exam: Alert, Oriented x3 - Psychiatric Exam Psychiatric exam: Normal Affect - Skin Skin Exam: Normal Color Results - Vital Signs Recent Vital Signs: Last Vital Signs Temp 99.8 F H 10/26/18 15:59 Pulse 99 H 10/26/18 15:59 Resp 18 10/26/18 15:59 BP 105/69 10/26/18 15:59 Pulse Ox 100 10/26/18 15:59 - Labs Result Diagrams: 10/26/18 06:50 10/26/18 06:50 Labs: Laboratory Results - last 24 hr 10/26/18 10/26/18 10/26/18 06:50 06:50 06:55 WBC 10.7 RBC 4.85 Hgb 8.8 L Hct 29.7 L MCV 61.2 L D MCH 18.1 L MCHC 29.6 L RDW 19.2 H Plt Count 190 MPV 9.2 Neut % (Auto) 85.2 H Lymph % (Auto) 9.6 L [place] % (Auto) 4.0 Eos % (Auto) 0.8 Baso % (Auto) 0.4 Neut # (Auto) 9.1 H Lymph # (Auto) 1.0 [place] # (Auto) 0.4 Eos # (Auto) 0.1 Baso # (Auto) 0.0 Neutrophils % (Manual) 83 H Lymphocytes % (Manual) 12 L Monocytes % (Manual) 4 Eosinophils % (Manual) 1 Platelet Estimate Normal Hypochromasia (manual) Moderate Poikilocytosis (manual Slight Anisocytosis (manual) Slight Microcytosis (manual) Moderate Tear Drop Cells Slight Ovalocytes Slight Sodium 137 Potassium 4.0 Chloride 105 Carbon Dioxide 22 Anion Gap 14 BUN 9 Creatinine 0.6 L Est GFR ( Amer) > 60 Est GFR (Non-Af Amer) > 60 POC Glucose (mg/dL) 157 H Random Glucose 132 H Calcium 9.2 Total Bilirubin 0.2 AST 24 ALT 16 Alkaline Phosphatase 78 Troponin I Total Protein 7.6 Albumin 4.1 Globulin 3.5 Albumin/Globulin Ratio 1.2 Urine Opiates Screen Urine Methadone Screen Ur Barbiturates Screen Ur Phencyclidine Scrn Ur Amphetamines Screen U Benzodiazepines Scrn U Oth Cocaine Metabols U Cannabinoids Screen Alcohol, Quantitative 10/26/18 10/26/18 10/26/18 07:52 10:15 10:42 WBC RBC Hgb Hct MCV MCH MCHC RDW Plt Count MPV Neut % (Auto) Lymph % (Auto) [place] % (Auto) Eos % (Auto) Baso % (Auto) Neut # (Auto) Lymph # (Auto) [place] # (Auto) Eos # (Auto) Baso # (Auto) Neutrophils % (Manual) Lymphocytes % (Manual) Monocytes % (Manual) Eosinophils % (Manual) Platelet Estimate Hypochromasia (manual) Poikilocytosis (manual Anisocytosis (manual) Microcytosis (manual) Tear Drop Cells Ovalocytes Sodium Potassium Chloride Carbon Dioxide Anion Gap BUN Creatinine Est GFR ( Amer) Est GFR (Non-Af Amer) POC Glucose (mg/dL) 147 H Random Glucose Calcium Total Bilirubin AST ALT Alkaline Phosphatase Troponin I < 0.0120 Total Protein Albumin Globulin Albumin/Globulin Ratio Urine Opiates Screen Negative Urine Methadone Screen Negative Ur Barbiturates Screen Negative Ur Phencyclidine Scrn Negative Ur Amphetamines Screen Negative U Benzodiazepines Scrn Negative U Oth Cocaine Metabols Negative U Cannabinoids Screen Negative Alcohol, Quantitative < 10 - EKG Data EKG Interpreted by: Myself EKG shows normal: Sinus rhythm Assessment & Plan (1) Syncope Assessment and Plan: The echocardiogram was reviewed by me in detail. There is no evidence of structural heart disease. Valvular function is normal. EKG reveals normal LV function. Likely neruological cause of the patient's presentation Status: Acute
[2018-10-26] MEDS ORDERED: Apap-Butalbital-Caffeine 325-50-40mg Tab PO PRN (19:01)
--- NOTE | 2018-10-26 19:08 | CARD ---
APPROVED REPORT Date of service: 10/26/2018 EXAM: Two-dimensional and M-mode echocardiogram with Doppler and color Doppler. Other Information Quality : GoodRhythm : NSR INDICATION Syncope 2D DIMENSIONS IVSd1.09 (0.7-1.1cm)LVDd4.65 (3.9-5.9cm) LVOT Diameter2.19 (1.8-2.4cm)PWd1.16 (0.7-1.1cm) IVSs1.45 (0.8-1.2cm)LVDs2.94 (2.5-4.0cm) FS (%) 36.9 %PWs1.31 (0.8-1.2cm) M-Mode DIMENSIONS Left Atrium (MM)3.73 (2.5-4.0cm)IVSd1.11 (0.7-1.1cm) Aortic Root3.22 (2.2-3.7cm)LVDd4.50 (4.0-5.6cm) Aortic Cusp Exc.2.11 (1.5-2.0cm)PWd1.18 (0.7-1.1cm) IVSs1.57 cmFS (%) 37 % LVDs2.83 (2.0-3.8cm)PWs1.49 cm Aortic Valve AoV Peak Oqrpkysj769.6cm/sAoV VTI25.2cmAO Peak GR.9mmHg LVOT Peak Uttxhjjv125.0cm/sLVOT VTI19.79cmAO Mean GR.4mmHg MARYSOL (VMAX)1.82cz6MHB (VTI)1.45cm2 Mitral Valve MV E Npaazuce19.7cm/sMV DECEL [id number] A Zvqkfnoj31.1cm/s MV QZV46fdO/A ratio1.3MVA (PHT)3.55cm2 TDI Lateral E' Peak V16.54cm/sMedial E' Peak V12.14cm/sE/Lateral E'5.5 E/Medial E'7.6 LEFT VENTRICLE The left ventricle is normal size. There is normal left ventricular wall thickness. The left ventricular systolic function is normal. The estimated ejection fraction is 60-65% No regional wall motion abnormalities noted.. The left ventricular diastolic function is normal. No left ventricle thrombus noted on this study. There is no ventricular septal defect visualized. There is no left ventricular aneurysm. There is no mass noted in the left ventricle. RIGHT VENTRICLE The right ventricle is normal size. There is normal right ventricular wall thickness. The right ventricular systolic function is normal. ATRIA The left atrium size is normal. The right atrium size is normal. The interatrial septum is intact with no evidence for an atrial septal defect. AORTIC VALVE The aortic valve is normal in structure. No aortic regurgitation is present. There is no aortic valvular stenosis. There is no aortic valvular vegetation. MITRAL VALVE The mitral valve is normal in structure. There is no evidence of mitral valve prolapse. There is no mitral valve stenosis. There is trace mitral valve regurgitation noted. TRICUSPID VALVE The tricuspid valve is normal in structure. There is no tricuspid valve regurgitation noted. There is no tricuspid valve prolapse or vegetation. There is no tricuspid valve stenosis. PULMONIC VALVE The pulmonary valve is normal in structure. There is no pulmonic valvular regurgitation. There is no pulmonic valvular stenosis. GREAT VESSELS The aortic root is normal in size. The ascending aorta is normal in size. The pulmonary artery is normal. The IVC is normal in size and collapses >50% with inspiration. PERICARDIAL EFFUSION There is no pericardial effusion. There is no pleural effusion. <Conclusion> The estimated ejection fraction is 60-65% The left ventricular diastolic function is normal. The left atrium size is normal. There is trace mitral valve regurgitation noted. There is no tricuspid valve regurgitation noted.
[2018-10-26] MEDS ORDERED: ARIPIPRAZOLE IM SCH (19:15)
--- NOTE | 2018-10-26 19:27 | CARD ---
APPROVED REPORT Date of service: 10/26/2018 EKG Measurement Heart [id number] ID [id number] <Conclusion> Sinus tachycardia Otherwise normal ECG
--- NOTE | 2018-10-26 20:20 | CP.PCM.HP ---
History of Present Illness - History of Present Illness History of Present Illness: pt admitted after having multiple syncopal epidsodes. most recently last night. pt is uncertain but ?? tripped/vs passed out when going to restroom. at present. a/o to persona dn place but not time. no f/c, n/v/d. bw noted. er imaging notd. echo and mri ordered. full rom of ext. facial brusing and swollen left eye noted. lac sutured by er md Present on Admission - Present on Admission Any Indicators Present on Admission: No Review of Systems - Integumentary Integumentary: As Per HPI, Swelling - Neurological Neurological: As Per HPI, Syncope Past Patient History - Tetanus Immunizations Tetanus Immunization: Unknown - Past Medical History & Family History Past Medical History?: Yes - Past Social History Alcohol: None Drugs: Denies - CARDIAC Hx Hypertension: No - PULMONARY Hx Asthma: Yes - NEUROLOGICAL Hx Migraine: Yes Hx Seizures: No - HEENT Hx HEENT Problems: No - RENAL Hx Chronic Kidney Disease: No - ENDOCRINE/METABOLIC Hx Endocrine Disorders: No - HEMATOLOGICAL/ONCOLOGICAL Hx Human Immunodeficiency Virus (HIV): No - INTEGUMENTARY Hx Dermatological Problems: No - MUSCULOSKELETAL/RHEUMATOLOGICAL Hx Rheumatoid Arthritis: Yes - GASTROINTESTINAL Hx Gastrointestinal Disorders: Yes Hx Colitis: Yes - GENITOURINARY/GYNECOLOGICAL Hx Sexually Transmitted Disorders: No - PSYCHIATRIC Hx Anxiety: Yes Hx Bipolar Disorder: Yes Hx Depression: Yes Hx Schizophrenia: No - SURGICAL HISTORY Hx Surgeries: Yes Hx Section: Yes (x3) Hx Tubal Ligation: Yes (x2) Other/Comment: ectopic . - ANESTHESIA Hx Anesthesia: Yes Hx Anesthesia Reactions: No Hx Malignant Hyperthermia: No Meds Allergies/Adverse Reactions: Allergies Allergy/AdvReac Type Severity Reaction Status Date / Time ketorolac tromethamine Allergy Severe ANAPHYLAXIS Verified 10/26/18 05:53 [From Toradol] Penicillins Allergy Severe ANAPHYLAXIS Verified 10/26/18 05:53 pineapple Allergy WHEEZING Verified 10/26/18 05:53 Physical Exam - Constitutional Appears: Well, Non-toxic, No Acute Distress - Head Exam Head Exam: ATRAUMATIC, NORMAL INSPECTION, NORMOCEPHALIC - Eye Exam Eye Exam: EOMI, Normal appearance, Periorbital swelling, PERRL Pupil Exam: NORMAL ACCOMODATION, PERRL Additional comments: brusing around left eye, lac bandaged - ENT Exam ENT Exam: Mucous Membranes Moist, Normal Exam - Neck Exam Neck exam: Positive for: Normal Inspection - Respiratory Exam Respiratory Exam: Clear to Auscultation Bilateral, NORMAL BREATHING PATTERN - Cardiovascular Exam Cardiovascular Exam: REGULAR RHYTHM, RRR, +S1, +S2 - GI/Abdominal Exam GI & Abdominal Exam: Normal Bowel Sounds, Soft. absent: Tenderness - Exam Bimanual exam: NORMAL BIMANUAL EXAM - Extremities Exam Extremities exam: Positive for: full ROM, normal capillary refill, normal inspection, pedal pulses present - Back Exam Back exam: FULL ROM, NORMAL INSPECTION - Neurological Exam Neurological exam: Alert, CN II-XII Intact, Normal Gait, Oriented x3, Reflexes Normal - Psychiatric Exam Psychiatric exam: Normal Affect, Normal Mood - Skin Skin Exam: Dry, Intact, Normal Color, Warm Results - Vital Signs Recent Vital Signs: Last Vital Signs Temp 98.8 F 10/26/18 19:52 Pulse 92 H 10/26/18 19:52 Resp 18 10/26/18 19:52 BP 100/63 10/26/18 19:52 Pulse Ox 99 10/26/18 19:52 - Labs Result Diagrams: 10/26/18 06:50 10/26/18 06:50 Labs: Laboratory Results - last 24 hr 10/26/18 10/26/18 10/26/18 06:50 06:50 06:55 WBC 10.7 RBC 4.85 Hgb 8.8 L Hct 29.7 L MCV 61.2 L D MCH 18.1 L MCHC 29.6 L RDW 19.2 H Plt Count 190 MPV 9.2 Neut % (Auto) 85.2 H Lymph % (Auto) 9.6 L Bland % (Auto) 4.0 Eos % (Auto) 0.8 Baso % (Auto) 0.4 Neut # (Auto) 9.1 H Lymph # (Auto) 1.0 Bland # (Auto) 0.4 Eos # (Auto) 0.1 Baso # (Auto) 0.0 Neutrophils % (Manual) 83 H Lymphocytes % (Manual) 12 L Monocytes % (Manual) 4 Eosinophils % (Manual) 1 Platelet Estimate Normal Hypochromasia (manual) Moderate Poikilocytosis (manual Slight Anisocytosis (manual) Slight Microcytosis (manual) Moderate Tear Drop Cells Slight Ovalocytes Slight Sodium 137 Potassium 4.0 Chloride 105 Carbon Dioxide 22 Anion Gap 14 BUN 9 Creatinine 0.6 L Est GFR ( Amer) > 60 Est GFR (Non-Af Amer) > 60 POC Glucose (mg/dL) 157 H Random Glucose 132 H Calcium 9.2 Total Bilirubin 0.2 AST 24 ALT 16 Alkaline Phosphatase 78 Troponin I Total Protein 7.6 Albumin 4.1 Globulin 3.5 Albumin/Globulin Ratio 1.2 Urine Opiates Screen Urine Methadone Screen Ur Barbiturates Screen Ur Phencyclidine Scrn Ur Amphetamines Screen U Benzodiazepines Scrn U Oth Cocaine Metabols U Cannabinoids Screen Alcohol, Quantitative 10/26/18 10/26/18 10/26/18 07:52 10:15 10:42 WBC RBC Hgb Hct MCV MCH MCHC RDW Plt Count MPV Neut % (Auto) Lymph % (Auto) Bland % (Auto) Eos % (Auto) Baso % (Auto) Neut # (Auto) Lymph # (Auto) Bland # (Auto) Eos # (Auto) Baso # (Auto) Neutrophils % (Manual) Lymphocytes % (Manual) Monocytes % (Manual) Eosinophils % (Manual) Platelet Estimate Hypochromasia (manual) Poikilocytosis (manual Anisocytosis (manual) Microcytosis (manual) Tear Drop Cells Ovalocytes Sodium Potassium Chloride Carbon Dioxide Anion Gap BUN Creatinine Est GFR ( Amer) Est GFR (Non-Af Amer) POC Glucose (mg/dL) 147 H Random Glucose Calcium Total Bilirubin AST ALT Alkaline Phosphatase Troponin I < 0.0120 Total Protein Albumin Globulin Albumin/Globulin Ratio Urine Opiates Screen Negative Urine Methadone Screen Negative Ur Barbiturates Screen Negative Ur Phencyclidine Scrn Negative Ur Amphetamines Screen Negative U Benzodiazepines Scrn Negative U Oth Cocaine Metabols Negative U Cannabinoids Screen Negative Alcohol, Quantitative < 10 Assessment & Plan (1) Laceration of forehead Assessment and Plan: sutured byed wound care wound cehck 2-3 days in office Status: Acute (2) Syncope Assessment and Plan: mri, echo neuro/cardio tele obs likely dc w/ outpt f/u in am Status: Acute (3) DVT prophylaxis Assessment and Plan: scd and ae hose ambulation w/ assistance Status: Acute Decision To Admit - Pt Status Changed To: Hospital Disposition Of: Observation - . Bed Request Type: Telemetry Admitting Physician: Lety Page
[2018-10-27 06:32] LABS: ALBUMIN 3.5 g/dL (3.5-5.0); ALT/SGPT 20 U/L (9-52); AST/SGOT 24 U/L (14-36); BASO % 0.4 % (0.0-2.0); BLOOD UREA NITROGEN 7 mg/dl (7-17); CALCIUM 8.6 mg/dL (8.4-10.2); EOS # 0.1 K/uL (0.0-0.7); EOS % 0.7 % (0.0-4.0); GFR NON-AFRICAN AMERICAN > 60; HDL CHOLESTEROL 46 MG/DL (30-70); HEMOGLOBIN 7.6 g/dL (12.0-16.0); LYMPH # 1.4 K/uL (1.0-4.3); LYMPH % 16.2 % (20.0-40.0); MEAN CELL VOLUME 62.1 fl (81.0-99.0); MEAN CORPUSCULAR HEMOGLOBIN 18.3 pg (27.0-31.0); MEAN CORPUSCULAR HGB CONC 29.5 g/dL (33.0-37.0); MEAN PLATELET VOLUME 10.2 fl (7.2-11.7); MONO # 0.6 K/uL (0.0-0.8); NEUT # 6.6 K/uL (1.8-7.0); NEUT % 75.7 % (50.0-75.0); NRBC % 0.2 % (0.0-0.0); RBC 4.14 Mil/uL (3.80-5.20); RED CELL DISTRIBUTION WIDTH 18.9 % (11.5-14.5); WHITE BLOOD COUNT 8.7 K/uL (4.8-10.8)
[2018-10-27 06:36] LABS: LDL CHOLESTEROL 78 mg/dL (0-129)
--- NOTE | 2018-10-27 09:50 | PCM.EEG ---
Electroencephalogram Report - Electroencephalogram Report Procedure Date: 10/26/18 Medication: Depakote Interpretation: Technical Information: This was a 16 -channel EEG, 1-channel EKG routine EEG performed using an [employer] machine. Electrodes were applied using the 10/20 international placement system. Start; 16;13 End; 16;59 Total; 42 min Clinical Information: syncope During resting wakefulness there was a symmetric posterior dominant rhythm at 8 to 8.5 Hz, 30-50 uV, which was reactive to eye opening and closing. Drowsiness (16;17) was associated with fragmentation of the posterior dominant rhythm and with slow roving eye movements. Light sleep (16;32) was recorded and was characterized by central vertex waves, sleep spindles, and bilateral theta slowing. Hyperventilation was not performed. Photic stimulation was performed and there were no changes on the record. Focal abnormality; none ECG was associated with a normal sinus rhythm. Impression: This is a normal awake drowsy and sleep electroencephalogram.
[2018-10-27] MEDS ORDERED: Potassium Chloride 20 mEq ER Tab PO ONE (11:00)
[2018-10-27 11:53] LABS: BASO % 0.4 % (0.0-2.0); EOS # 0.1 K/uL (0.0-0.7); EOS % 0.8 % (0.0-4.0); HEMOGLOBIN 7.7 g/dL (12.0-16.0); LYMPH # 1.4 K/uL (1.0-4.3); LYMPH % 14.2 % (20.0-40.0); MEAN CELL VOLUME 61.5 fl (81.0-99.0); MEAN CORPUSCULAR HEMOGLOBIN 18.3 pg (27.0-31.0); MEAN CORPUSCULAR HGB CONC 29.7 g/dL (33.0-37.0); MEAN PLATELET VOLUME 10.2 fl (7.2-11.7); MONO # 0.6 K/uL (0.0-0.8); MONO % 5.9 % (0.0-10.0); NEUT # 7.7 K/uL (1.8-7.0); NEUT % 78.7 % (50.0-75.0); RBC 4.23 Mil/uL (3.80-5.20); RED CELL DISTRIBUTION WIDTH 19.2 % (11.5-14.5); WHITE BLOOD COUNT 9.8 K/uL (4.8-10.8)
[2018-10-27 12:35] LABS: FERRITIN 4.9 ng/Ml (6.24-137.0)
[2018-10-27 13:02] LABS: IRON 21 ug/dL (37-170)
[2018-10-27 13:11] LABS: % IRON SATURATION 5 % (20-55); TOTAL IRON BINDING CAPACITY 439 ug/dL (250-450)
[2018-10-28 00:42] VITALS: BP 158/97; PULSE 76; RESP 18; TEMP 98.6; O2SAT 96
== END 2018-10-27 13:40 | disposition left against medical advice (07) ==
LOC: H.ER 05:42 → H.ERHOLD 09:58 → H.TEL 15:06
PROVIDERS: ADMIT Family Medicine; ATTEND Family Medicine
DX: G40.909 Epilepsy, unspecified, not intractable, without status epilepticus (principal); S01.81XA Laceration without foreign body of other part of head, initial encounter; J01.00 Acute maxillary sinusitis, unspecified; J32.2 Chronic ethmoidal sinusitis; W18.39XA Other fall on same level, initial encounter; J45.909 Unspecified asthma, uncomplicated; M06.9 Rheumatoid arthritis, unspecified; F31.9 Bipolar disorder, unspecified; F41.9 Anxiety disorder, unspecified; F17.210 Nicotine dependence, cigarettes, uncomplicated; Z23 Encounter for immunization; Z88.0 Allergy status to penicillin; Y92.009 Unspecified place in unspecified non-institutional (private) residence as the place of occurrence of the external cause
CPT/HCPCS: 12013; 36415; 70450; 70486; 70551; 80053; 80061; 80320; 80324; 80345; 80346; 80349; 80353; 80358; 80361; 81025; 82607; 82728; 82948; 83036; 83735; 83992; 84100; 84466; 84484; 85025; 90471; 90715; 93005; 93306; 99285; G0378; J2060

== ENCOUNTER 2018-11-09 13:25 | Emergency (ER) | payer MEDICAID ==
[2018-11-09 13:25] VITALS: BMI 32.4
[2018-11-09 13:40] VITALS: BP 124/78; PULSE 74; RESP 16; TEMP 98.5; O2SAT 100
--- NOTE | 2018-11-09 14:20 | ED PDOC ---
HPI: Wound Care - HPI Time Seen by Provider: 11/09/18 14:01 Chief Complaint (Nursing): Suture/Staple Removal Chief Complaint (Provider): Suture removal History Per: Patient Exam Limitations: no limitations Additional Complaint(s): 38 year old female presents to the ED for suture removal. 9 sutures were placed after patient fell a couple of weeks ago. Patient reports she had passed out and fell onto a radiator at the time of the incident. She reports improvement of eye redness. Patient states she has been applying antibiotic ointment to the wound and denies any pain right now. She reports proper follow up since initial visit. Pt denies any other complaints at this time. PMD: Rashaun Rosario Past Medical History Reviewed: Historical Data, Nursing Documentation, Vital Signs Vital Signs: Last Vital Signs Temp 98.5 F 11/09/18 13:37 Pulse 74 11/09/18 13:37 Resp 16 11/09/18 13:37 BP 124/78 11/09/18 13:37 Pulse Ox 100 11/09/18 13:37 - Medical History PMH: Anxiety, Asthma, Back Problems, Bipolar Disorder, Depression, Migraine, Rheumatoid Arthritis Denies: Diabetes, Hepatitis, HIV, HTN, Personality Disorder, Chronic Kidney Disease, Schizophrenia, Seizures, Sexually Transmitted Disease - Surgical History Surgical History: (x 2) - Family History Family History: States: Unknown Family Hx - Immunization History Hx Tetanus Toxoid Vaccination: No Hx Influenza Vaccination: Yes Hx Pneumococcal Vaccination: Yes - Home Medications Home Medications: Ambulatory Orders Medication Instructions Recorded Acetaminophen/Butalbital/Caf 1 tab PO Q6 PRN 10/26/18 [Fioricet] Aripiprazole Extended Release 400 mg IM Q28D 10/26/18 [Abilify Maintena] Gabapentin [Neurontin] 400 mg PO TID 10/26/18 Gabapentin [Neurontin] 600 mg PO HS 10/26/18 Zolpidem [Ambien] 10 mg PO HS 10/26/18 traMADol [Ultram] 50 mg PO Q6 PRN 10/26/18 - Allergies Allergies/Adverse Reactions: Allergies Allergy/AdvReac Type Severity Reaction Status Date / Time ketorolac tromethamine Allergy Severe ANAPHYLAXIS Verified 10/26/18 05:53 [From Toradol] Penicillins Allergy Severe ANAPHYLAXIS Verified 10/26/18 05:53 pineapple Allergy WHEEZING Verified 10/26/18 05:53 Review of Systems ROS Statement: Except As Marked, All Systems Reviewed And Found Negative Physical Exam - Reviewed Nursing Documentation Reviewed: Yes Vital Signs Reviewed: Yes - Physical Exam Comments: GENERAL APPEARANCE: Patient is awake, alert, oriented x3 in no acute distress. HEAD: 9 sutures intact with well healed curved laceration to left forehead, no erythema, no swelling, no drainage EYE: Conjunctival hemorrhage to the left eye, (-)soft tissue swelling - ECG O2 Sat by Pulse Oximetry: 100 (RA) Pulse Ox Interpretation: Normal Medical Decision Making Medical Decision Making: Initial Impression: suture removal Initial Plan: 9 sutures removed. Bacitracin and band aid applied. Patient tolerated procedure well. Discussed diagnosis, treatment, wound care, return precautions and f/u with pt who is understanding, in agreement an stable for dc Scribe Attestation: Documented by Bharathi Napoles acting as a scribe for Deyvi ARCHER. Provider Scribe Attestation: All medical record entries made by the Scribe were at my direction and personally dictated by me. I have reviewed the chart and agree that the record accurately reflects my personal performance of the history, physical exam, medical decision making, and the department course for this patient. I have also personally directed, reviewed, and agree with the discharge instructions and disposition. Disposition - Clinical Impression Clinical Impression: Removal of suture - Patient ED Disposition Is Patient to be Admitted: No Counseled Patient/Family Regarding: Studies Performed, Diagnosis, Need For Followup - Disposition Referrals: Rashaun Mcdaniel MD [Family Provider] - Disposition: Routine/Home Disposition Time: 14:19 Condition: STABLE Additional Instructions: Keep wound clean, dry and covered. Apply bacitracin/neosporin 1-2 times a day. Thank you for letting us take care of you today. The emergency medical care you received today was directed at your acute symptoms. If you were prescribed any medication, please fill it and take as directed. It may take several days for your symptoms to resolve. Return to the Emergency Department if your symptoms worsen, do not improve, or if you have any other problems. Please contact your doctor in 2 days for re-evaluation and follow up / or call one of the physicians/clinics you have been referred to that are listed on the Patient Visit Information form that is included in your discharge packet. Bring any paperwork you were given at discharge with you along with any medications you are taking to your follow up visit. Our treatment cannot replace ongoing medical care by a primary care provider (PCP) outside of the emergency department. Instructions: How to Prevent Surgical Site Infections, Stitches Removal Forms: [facility] (Hungarian) Print Language: CYMRAES - POA Present On Arrival: None
== END 2018-11-09 14:34 | disposition home or self-care (01) ==
LOC: H.ER 13:25
DX: Z48.02 Encounter for removal of sutures (principal); J45.909 Unspecified asthma, uncomplicated; Z86.59 Personal history of other mental and behavioral disorders; M06.9 Rheumatoid arthritis, unspecified; Z88.0 Allergy status to penicillin